=== PATIENT | female | born 1960 | race Caucasian/White ===

== ENCOUNTER 2016-06-03 11:08 | Emergency (ER) | payer OTHER ==
[~2016-06-03] VITALS: Ht 165.1 cm; Wt 106.8 kg
[~2016-06-03 11:08] MED LIST: ADVIL200 MG PO; ALEVE 220MG220 MG PO; ALORA0.025 MG/2 TD; AMOXICILLIN 8751 TAB PO; CIPRO 500MG TA500 MG PO; FLAGYL500 MG PO; FLEXERIL 1010 MG/TAB PO; HCTZ PO; LEXAPRO 10MG10 MG PO; LEXAPRO20 MG PO; NORCO 325 MG-51 TAB PO; PRINIVIL10 MG PO; PROTONIX 40MG T40 MG PO; SOMA350 MG PO; SYNTHROID0.125 MG PO; SYNTHROID0.137 MG PO; TYLENOL 325MG325 MG PO; ZANAFLEX2 MG PO; ZOFRAN ODT4 MG PO; ZOFRAN4 M1 PO
[2016-06-03 11:10] VITALS: TEMP 98.3
[2016-06-03] MEDS ORDERED: SYNTHROID0.1 MG/TAB PO (11:14)
[2016-06-03] MEDS ORDERED: AMOXICILLIN 8751 TAB PO (11:14)
[2016-06-03 12:02] LABS: BASO % 0.3 % (0.0-2.0); EOS # 0.2 (0.0-0.7); EOS % 1.6 % (0-4.0); GRAN # 6.8 (1.4-6.5); GRAN % 56.1 % (42.2-75.2); HEMATOCRIT 40.2 % (37.0-47.0); HEMOGLOBIN 13.6 g/dl (12.5-16.0); LYMPH # 3.8 (1.2-3.4); MEAN CELL VOLUME 87 fl (80.0-100.0); MEAN CORPUSCULAR HEMOGLOBIN 29 pg (27.0-31.0); MEAN CORPUSCULAR HGB CONC 34 g/dl (33.0-37.0); MEAN PLATELET VOLUME 9.4 fl (7.4-10.4); MONO # 1.3 (0.1-0.6); MONO % 10.8 % (1.7-9.3); PLATELET COUNT 308 K/mm3 (130-400); RED BLOOD COUNT 4.62 M/mm3 (4.10-5.30); REDCELL DISTRIBUTION WIDTH-CV 14.1 % (11.5-14.5); WHITE BLOOD COUNT 12.1 K/mm3 (4.8-10.8)
[2016-06-03 12:31] LABS: ADJUSTED CALCIUM 9.3 mg/dL (8.4-10.2); ALBUMIN 4.5 gm/dL (3.5-5.0); BILIRUBIN,TOTAL 0.7 mg/dL (0.0-1.0); C-REACTIVE PROTEIN 6.3 mg/dL (0.0-0.9); CALCIUM 9.7 mg/dL (8.4-10.2); CREATININE, serum 0.75 mg/dL (0.52-1.25); POTASSIUM 3.9 mmol/L (3.4-5.0); TOTAL PROTEIN 8.6 gm/dL (6.4-8.2)
[2016-06-03 12:52] LABS: PH 5 (5-8); SQUAMOUS EPITHELIAL 0-2 /hpf; URINE APPEARANCE Hazy; URINE BACTERIA None Seen /hpf; URINE BILIRUBIN Negative (NEGATIVE); URINE BLOOD 1+ (NEGATIVE); URINE COLOR Yellow; URINE GLUCOSE Negative (NEGATIVE); URINE KETONE Negative (NEGATIVE); URINE RBC 0-2 /hpf; URINE UROBILINOGEN Negative (NEGATIVE); URINE WBC 0-2 /hpf
[2016-06-03] MEDS ORDERED: FLAGYL500 MG PO (13:38)
[2016-06-03] MEDS ORDERED: ZOFRAN 4MG T4 MG/TAB PO (13:38)
[2016-06-03] MEDS ORDERED: NORCO 325 MG-51 TAB PO (13:38)
[2016-06-03] MEDS ORDERED: CIPRO 500MG TA500 MG PO (13:38)
[2016-06-03 13:43] VITALS: BP 119/81; PULSE 75
== END 2016-06-03 15:22 | disposition home or self-care (01) ==
LOC: COL.ER 11:08
PROVIDERS: Emergency Medicine
DX: K57.32 Diverticulitis of large intestine without perforation or abscess without bleeding (principal)
CPT/HCPCS: J2270; J2405; J7030; Q9967

== ENCOUNTER → 2016-08-15 | Outpatient (CLI) | payer OTHER ==
[~2016-08-15] MED LIST changes: +SYNTHROID0.1 MG/TAB PO; +ZOFRAN 4MG T4 MG/TAB PO
== END ==
LOC: COL.RAD 12:22
DX: M25.78 Osteophyte, vertebrae (principal); M54.12 Radiculopathy, cervical region; Z98.1 Arthrodesis status

== ENCOUNTER → 2018-07-03 | Outpatient (CLI) | payer OTHER | LOC: COL.RAD 10:18 | DX: K76.0 Fatty (change of) liver, not elsewhere classified (principal); K57.32 Diverticulitis of large intestine without perforation or abscess without bleeding; K63.89 Other specified diseases of intestine; R68.83 Chills (without fever); Z90.710 Acquired absence of both cervix and uterus | CPT/HCPCS: Q9967 ==

== ENCOUNTER → 2019-02-12 | Outpatient (CLI) | payer OTHER | LOC: MC.RAD 16:11 | DX: Z12.31 Encounter for screening mammogram for malignant neoplasm of breast (principal) ==

== ENCOUNTER → 2019-07-08 | Outpatient (CLI) | payer OTHER | LOC: COL.RAD 09:47 | DX: R10.11 Right upper quadrant pain (principal); R11.0 Nausea ==

== ENCOUNTER 2021-01-13 07:12 | Day surgery (SDC) | payer OTHER ==
[~2021-01-13] VITALS: Ht 165.1 cm; Wt 101.8 kg
[2021-01-13] MEDS ORDERED: CYMBALTA 60MG60 MG PO (07:19)
[2021-01-13] MEDS ORDERED: LYRICA 75MG CAP75 MG PO (07:20)
[2021-01-13 07:22] VITALS: BP 142/90; PULSE 76; TEMP 97.8
[2021-01-13] MEDS ORDERED: CARAFATE 1GM1 G PO ×2 (08:36→08:49)
[2021-01-13 08:50] VITALS: BP 107/74; PULSE 61; TEMP 97.8
--- NOTE | 2021-01-13 08:50 | NUR ---
The patient arrived back to [facility] from the endoscopy suite at this time. The patient ambulated from the cart to the recliner in her room with the stand by assistance of two nurses and appeared to tolerate the activity well. Vital signs were started at this time. The patient agrees to try some apple juice and white toast. The patient's sister at her bedside. Call light is within reach. Will continue to monitor the patient.
[2021-01-13 09:05] VITALS: BP 94/73; PULSE 60
--- NOTE | 2021-01-13 09:05 | NUR ---
The patient appears to be tolerating the food and drink well. Vital signs appear stable. Will continue to monitor the patient.
[2021-01-13 09:20] VITALS: BP 116/72; PULSE 54
[2021-01-13 09:35] VITALS: BP 99/62; PULSE 58
[2021-01-13 09:44] VITALS: BP 116/71; PULSE 65
--- NOTE | 2021-01-13 09:45 | NUR ---
Discharge instructions were reviewed with the patient and her sister at this time. They both verbalized understanding and have no questions for the nurse at this time. The patient's IV to her right hand was removed and a pressure dressing was applied to the site. The nurse instructed the patient to get dressed and notify the staff when she is ready to be escorted out.
--- NOTE | 2021-01-13 10:05 | NUR ---
The patient was escorted out via wheelchair to a private vehicle by MARY Castro. The patient's belongings and discharge paperwork were sent with her. The patient's sister is present to drive her home.
== END 2021-01-13 10:05 | disposition home or self-care (01) ==
LOC: SDCO 07:12
DX: K29.31 Chronic superficial gastritis with bleeding (principal); K25.4 Chronic or unspecified gastric ulcer with hemorrhage; K63.5 Polyp of colon; K44.9 Diaphragmatic hernia without obstruction or gangrene; K57.30 Diverticulosis of large intestine without perforation or abscess without bleeding; K21.9 Gastro-esophageal reflux disease without esophagitis; E03.9 Hypothyroidism, unspecified; G62.9 Polyneuropathy, unspecified; C00-D49 Neoplasms; I10 Essential (primary) hypertension; M48.02 Spinal stenosis, cervical region; F32.9 Major depressive disorder, single episode, unspecified; F41.9 Anxiety disorder, unspecified; Z20.822 Contact with and (suspected) exposure to COVID-19; Z79.890 Hormone replacement therapy; F17.210 Nicotine dependence, cigarettes, uncomplicated; Z79.899 Other long term (current) drug therapy; Z85.43 Personal history of malignant neoplasm of ovary; Z85.42 Personal history of malignant neoplasm of other parts of uterus; Z80.3 Family history of malignant neoplasm of breast; Z80.1 Family history of malignant neoplasm of trachea, bronchus and lung; Z80.0 Family history of malignant neoplasm of digestive organs
CPT/HCPCS: J2704; J7030

== ENCOUNTER 2021-11-19 18:31 | Emergency (ER) | payer OTHER ==
[~2021-11-19] VITALS: Ht 162.6 cm; Wt 102.3 kg
[~2021-11-19 18:31] MED LIST changes: +CARAFATE 1GM1 G PO; +CYMBALTA 60MG60 MG PO; +LYRICA 75MG CAP75 MG PO
[2021-11-19 18:44] VITALS: TEMP 97.1
[2021-11-19 19:36] LABS: BASO # 0.1 K/mm3 (0.0-0.2); BASO % 0.4 % (0.0-2.0); EOS # 0.4 K/mm3 (0.0-0.7); EOS % 2.3 % (0.0-4.0); GRAN # 11.4 K/mm3 (1.4-6.5); GRAN % 71.9 % (42.2-75.2); HEMATOCRIT 38.5 % (37.0-47.0); HEMOGLOBIN 12.8 g/dl (12.5-16.0); LYMPH # 2.9 K/mm3 (1.2-3.4); LYMPH % 18.1 % (20.0-51.0); MEAN CELL VOLUME 89 fl (80.0-100.0); MEAN CORPUSCULAR HEMOGLOBIN 30 pg (27-31); MEAN CORPUSCULAR HGB CONC 33 g/dl (33.0-37.0); MEAN PLATELET VOLUME 8.8 fl (7.4-10.4); MONO # 1.1 K/mm3 (0.1-0.6); MONO % 6.9 % (1.7-9.3); PLATELET COUNT 436 K/mm3 (130-400); RED BLOOD COUNT 4.34 M/mm3 (4.10-5.30); REDCELL DISTRIBUTION WIDTH-CV 13.2 % (11.5-14.5)
[2021-11-19 19:53] LABS: ALBUMIN 3.7 gm/dL (3.4-4.8); BILIRUBIN,TOTAL 0.2 mg/dL (0.2-1.2); CALCIUM 9.5 mg/dL (8.4-10.2); CREATININE, serum 0.8 mg/dL (0.57-1.11); POTASSIUM 4.4 mmol/L (3.5-4.5)
[2021-11-19 20:16] LABS: COLLECTION METHOD CLEAN CATCH
[2021-11-19 20:26] LABS: PH 6 (5-8); SQUAMOUS EPITHELIAL 0-2 /hpf (0-10); URINE APPEARANCE Clear (CLEAR/HAZY); URINE BACTERIA None Seen /hpf (NONE SEEN); URINE BILIRUBIN Negative (NEGATIVE); URINE BLOOD Negative (NEGATIVE); URINE COLOR Yellow (YELLOW); URINE GLUCOSE Negative (NEGATIVE); URINE KETONE Negative (NEGATIVE); URINE LEUKOCYTE ESTERASE Negative (NEGATIVE); URINE NITRATE Negative (NEGATIVE); URINE PROTEIN(semi-quant) Negative (NEGATIVE); URINE RBC 0-2 /hpf (0-2); URINE UROBILINOGEN Negative (NEGATIVE)
[2021-11-19] MEDS ORDERED: PERCOCET 325 MG1 TA2 PO (21:58)
[2021-11-19 22:55] VITALS: BP 132/91; PULSE 70
== END 2021-11-19 22:55 | disposition home or self-care (01) ==
LOC: COL.ER 18:31
PROVIDERS: Personal Emergency Response Attendant
DX: K57.92 Diverticulitis of intestine, part unspecified, without perforation or abscess without bleeding (principal); F17.200 Nicotine dependence, unspecified, uncomplicated; Z88.1 Allergy status to other antibiotic agents; Z28.310 Unvaccinated for COVID-19
CPT/HCPCS: J0692; J2270; J2405; J7030

== ENCOUNTER 2021-12-05 09:17 | Emergency (ER) | payer OTHER ==
[~2021-12-05] VITALS: Ht 165.1 cm; Wt 100.0 kg
[~2021-12-05 09:17] MED LIST changes: +PERCOCET 325 MG1 TA2 PO
[2021-12-05 09:27] VITALS: TEMP 97.9
[2021-12-05 10:00] LABS: COLLECTION METHOD CLEAN CATCH
[2021-12-05 10:10] LABS: MUCOUS Present (NOT PRESENT); PH 5 (5-8); URINE APPEARANCE Hazy (CLEAR/HAZY); URINE BACTERIA None Seen /hpf (NONE SEEN); URINE BLOOD Negative (NEGATIVE); URINE GLUCOSE Negative (NEGATIVE); URINE KETONE Trace (NEGATIVE); URINE NITRATE Negative (NEGATIVE); URINE PROTEIN(semi-quant) 1+ (NEGATIVE); URINE RBC 0-2 /hpf (0-2); URINE UROBILINOGEN Negative (NEGATIVE); URINE WBC 0-2 /hpf (0-2)
[2021-12-05 10:11] LABS: URINE COLOR Straw (YELLOW)
[2021-12-05 10:23] LABS: ALBUMIN 3.7 gm/dL (3.4-4.8); BILIRUBIN,TOTAL 0.3 mg/dL (0.2-1.2); CALCIUM 9.5 mg/dL (8.4-10.2); CREATININE, serum 0.84 mg/dL (0.57-1.11); POTASSIUM 3.9 mmol/L (3.5-4.5); TOTAL PROTEIN 7.6 gm/dL (6.2-8.1)
[2021-12-05 10:25] LABS: BASO # 0.1 K/mm3 (0.0-0.2); BASO % 0.5 % (0.0-2.0); EOS # 0.3 K/mm3 (0.0-0.7); EOS % 2.7 % (0.0-4.0); GRAN # 7.4 K/mm3 (1.4-6.5); GRAN % 62.9 % (42.2-75.2); HEMATOCRIT 38.5 % (37.0-47.0); HEMOGLOBIN 12.4 g/dl (12.5-16.0); LYMPH # 2.9 K/mm3 (1.2-3.4); LYMPH % 24.5 % (20.0-51.0); MEAN CELL VOLUME 91 fl (80.0-100.0); MEAN CORPUSCULAR HEMOGLOBIN 30 pg (27-31); MEAN CORPUSCULAR HGB CONC 32 g/dl (33.0-37.0); MEAN PLATELET VOLUME 9.7 fl (7.4-10.4); MONO # 1.1 K/mm3 (0.1-0.6); MONO % 9.1 % (1.7-9.3); PLATELET COUNT 382 K/mm3 (130-400); RED BLOOD COUNT 4.21 M/mm3 (4.10-5.30); REDCELL DISTRIBUTION WIDTH-CV 13.7 % (11.5-14.5)
[2021-12-05] MEDS ORDERED: FLAGYL500 MG PO (11:44)
[2021-12-05] MEDS ORDERED: CIPRO 500MG TA500 MG PO (11:44)
[2021-12-05 11:54] VITALS: BP 139/83; PULSE 60
== END 2021-12-05 11:57 | disposition home or self-care (01) ==
LOC: COL.ER 09:17
PROVIDERS: Emergency Medicine
DX: K57.32 Diverticulitis of large intestine without perforation or abscess without bleeding (principal); F17.200 Nicotine dependence, unspecified, uncomplicated; Z88.2 Allergy status to sulfonamides
CPT/HCPCS: J2405; Q9967

== ENCOUNTER 2023-05-21 11:16 | Emergency (ER) | payer OTHER ==
[~2023-05-21] VITALS: Ht 162.6 cm; Wt 104.5 kg
[2023-05-21 11:20] VITALS: TEMP 98.5
[2023-05-21] MEDS ORDERED: XANAX 0.5MG0.5 MG PO (11:30)
[2023-05-21] MEDS ORDERED: WELLBUTRIN XL150 MG PO (11:30)
[2023-05-21 12:06] LABS: BASO # 0.1 K/mm3 (0.0-0.2); BASO % 0.7 % (0.0-2.0); EOS # 0.4 K/mm3 (0.0-0.7); EOS % 4.3 % (0.0-4.0); GRAN # 4.5 K/mm3 (1.4-6.5); GRAN % 51.3 % (42.2-75.2); HEMATOCRIT 37.8 % (37.0-47.0); HEMOGLOBIN 12.5 g/dl (12.5-16.0); LYMPH % 33.9 % (20.0-51.0); MEAN CELL VOLUME 91 fl (80.0-100.0); MEAN CORPUSCULAR HEMOGLOBIN 30 pg (27-31); MEAN CORPUSCULAR HGB CONC 33 g/dl (33.0-37.0); MEAN PLATELET VOLUME 9.1 fl (7.4-10.4); MONO # 0.8 K/mm3 (0.1-0.6); MONO % 9.5 % (1.7-9.3); PLATELET COUNT 356 K/mm3 (130-400); RED BLOOD COUNT 4.15 M/mm3 (4.10-5.30); REDCELL DISTRIBUTION WIDTH-CV 13.2 % (11.5-14.5)
[2023-05-21 12:23] LABS: ALBUMIN 4.2 gm/dL (3.4-4.8); BILIRUBIN,TOTAL 0.4 mg/dL (0.2-1.2); CALCIUM 9.6 mg/dL (8.4-10.2); CREATININE, serum 0.88 mg/dL (0.57-1.11); POTASSIUM 4.2 mmol/L (3.5-4.5); TOTAL PROTEIN 7.5 gm/dL (6.2-8.1)
[2023-05-21 12:42] LABS: TSH w REFLEX 1.188 uIU/mL (0.350-4.940)
[2023-05-21 14:00] VITALS: BP 148/108; PULSE 76
== END 2023-05-21 14:05 | disposition home or self-care (01) ==
LOC: COL.ER 11:16
PROVIDERS: Physician Assistant
DX: R22.1 Localized swelling, mass and lump, neck (principal); R13.10 Dysphagia, unspecified; F17.200 Nicotine dependence, unspecified, uncomplicated
CPT/HCPCS: Q9967

== ENCOUNTER 2023-06-16 11:56 | Emergency (ER) | payer OTHER ==
[~2023-06-16] VITALS: Ht 165.1 cm; Wt 96.4 kg
[~2023-06-16 11:56] MED LIST changes: +WELLBUTRIN XL150 MG PO; +XANAX 0.5MG0.5 MG PO
[2023-06-16 12:00] VITALS: TEMP 97.8
[2023-06-16 12:50] LABS: BASO # 0.1 K/mm3 (0.0-0.2); BASO % 0.5 % (0.0-2.0); EOS # 0.4 K/mm3 (0.0-0.7); EOS % 3.8 % (0.0-4.0); GRAN # 5.6 K/mm3 (1.4-6.5); GRAN % 59.5 % (42.2-75.2); HEMATOCRIT 40.2 % (37.0-47.0); HEMOGLOBIN 13.5 g/dl (12.5-16.0); LYMPH # 2.7 K/mm3 (1.2-3.4); LYMPH % 28.4 % (20.0-51.0); MEAN CELL VOLUME 89 fl (80.0-100.0); MEAN CORPUSCULAR HEMOGLOBIN 30 pg (27-31); MEAN CORPUSCULAR HGB CONC 34 g/dl (33.0-37.0); MONO # 0.7 K/mm3 (0.1-0.6); MONO % 7.5 % (1.7-9.3); PLATELET COUNT 337 K/mm3 (130-400); RED BLOOD COUNT 4.52 M/mm3 (4.10-5.30); REDCELL DISTRIBUTION WIDTH-CV 13.6 % (11.5-14.5)
[2023-06-16 13:06] LABS: ALBUMIN 4.3 gm/dL (3.4-4.8); BILIRUBIN,TOTAL 0.3 mg/dL (0.2-1.2); CALCIUM 9.9 mg/dL (8.4-10.2); CREATININE, serum 0.83 mg/dL (0.57-1.11); POTASSIUM 4.1 mmol/L (3.5-4.5); TOTAL PROTEIN 7.9 gm/dL (6.2-8.1)
[2023-06-16] MEDS ORDERED: Iohexol 300 - 100 ML VIAL IV ONE (13:23)
[2023-06-16] MEDS ORDERED: NS 100 ML IV SCH (13:24)
[2023-06-16] MEDS ORDERED: LORazepam 2 MG/ML 1 ML VIAL IV ONE (15:45)
[2023-06-16] MEDS ORDERED: NS 1,000 ML IV ONE (16:15)
[2023-06-16 19:00] VITALS: BP 155/106; PULSE 90
== END 2023-06-16 19:17 | disposition short-term general hospital (02) ==
LOC: COL.ER 11:56
PROVIDERS: Physician Assistant
DX: E07.9 Disorder of thyroid, unspecified (principal)
CPT/HCPCS: J2060; J7030; Q9967